=== PATIENT | male | born 2000 | race Two or more races ===

== ENCOUNTER 2021-11-30 21:22 | Emergency (ER) | payer MEDICAID, OTHER ==
[~2021-11-30] VITALS: Ht 165.1 cm; Wt 57.2 kg
[2021-11-30 21:23] VITALS: BP 141/80
== END 2021-12-01 01:18 | disposition left against medical advice (07) ==
LOC: ER 21:26
DX: H92.02 Otalgia, left ear (principal); Z53.21 Procedure and treatment not carried out due to patient leaving prior to being seen by health care provider
CPT/HCPCS: 93005